=== PATIENT | female | born 1965 ===

== ENCOUNTER 2017-06-29 13:51 | Outpatient (CLI) | payer OTHER | END 2017-06-29 14:28 | disposition home or self-care (01) | LOC: MRI 13:51 | DX: M25.562 Pain in left knee (principal) | CPT/HCPCS: 73721 ==

== ENCOUNTER 2018-07-20 11:16 | Outpatient (CLI) | payer OTHER | END 2018-07-20 11:18 | disposition home or self-care (01) | LOC: SONOGRAMA 11:16 | DX: R10.84 Generalized abdominal pain (principal); R10.11 Right upper quadrant pain ==

== ENCOUNTER 2018-09-22 13:21 | Outpatient (CLI) | payer OTHER | END 2018-09-22 13:36 | disposition home or self-care (01) | LOC: NUCLEAR 13:21 | DX: M81.0 Age-related osteoporosis without current pathological fracture (principal) ==

== ENCOUNTER 2019-12-14 14:11 | Outpatient (CLI) | payer OTHER | END 2019-12-14 15:00 | disposition home or self-care (01) | LOC: LAB 14:11 | PROVIDERS: ATTEND Internal Medicine | DX: R07.89 Other chest pain (principal); N39.0 Urinary tract infection, site not specified; I10 Essential (primary) hypertension; E06.9 Thyroiditis, unspecified ==

== ENCOUNTER → 2020-02-10 08:57 | Outpatient (CLI) | payer OTHER | END | disposition home or self-care (01) | LOC: LAB 08:57 | PROVIDERS: ATTEND Internal Medicine | DX: E06.5 Other chronic thyroiditis (principal); Z20.828 Contact with and (suspected) exposure to other viral communicable diseases; M15.0 Primary generalized (osteo)arthritis; I10 Essential (primary) hypertension; N39.0 Urinary tract infection, site not specified; Z12.11 Encounter for screening for malignant neoplasm of colon; E55.9 Vitamin D deficiency, unspecified; M25.50 Pain in unspecified joint ==

== ENCOUNTER → 2020-02-17 10:16 | Outpatient (CLI) | payer OTHER | END | disposition home or self-care (01) | LOC: LAB 10:16 | PROVIDERS: ATTEND Internal Medicine | DX: E06.0 Acute thyroiditis (principal); N39.0 Urinary tract infection, site not specified; I10 Essential (primary) hypertension; Z12.11 Encounter for screening for malignant neoplasm of colon; M15.0 Primary generalized (osteo)arthritis; B96.89 Other specified bacterial agents as the cause of diseases classified elsewhere; M25.50 Pain in unspecified joint; R76.0 Raised antibody titer ==

== ENCOUNTER 2020-11-15 08:16 | Outpatient (CLI) | payer OTHER | END 2020-11-15 08:19 | disposition home or self-care (01) | LOC: NUCLEAR 08:16 | PROVIDERS: ATTEND Internal Medicine | DX: R07.89 Other chest pain (principal) ==

== ENCOUNTER 2020-11-23 09:42 | Outpatient (CLI) | payer OTHER | END 2020-11-23 09:47 | disposition home or self-care (01) | LOC: LAB 09:42 | PROVIDERS: ATTEND Specialist | DX: E06.3 Autoimmune thyroiditis (principal) ==

== ENCOUNTER 2020-12-31 07:13 | Outpatient (CLI) | payer OTHER | END 2020-12-31 09:15 | disposition home or self-care (01) | LOC: SONOGRAMA 07:13 → MAMO-SONO 07:15 → SONOGRAMA 09:15 | PROVIDERS: ATTEND Specialist | DX: E04.2 Nontoxic multinodular goiter (principal); K76.0 Fatty (change of) liver, not elsewhere classified; E06.3 Autoimmune thyroiditis ==

== ENCOUNTER 2020-12-31 08:31 | Outpatient (CLI) | payer OTHER | END 2020-12-31 08:40 | disposition home or self-care (01) | LOC: NUCLEAR 08:31 | PROVIDERS: ATTEND Internal Medicine | DX: M81.0 Age-related osteoporosis without current pathological fracture (principal) ==

== ENCOUNTER 2021-01-04 10:37 | Outpatient (CLI) | payer OTHER | END 2021-01-04 18:00 | disposition home or self-care (01) | LOC: LAB 10:37 | DX: N39.0 Urinary tract infection, site not specified (principal); I10 Essential (primary) hypertension; D68.8 Other specified coagulation defects; Z03.818 Encounter for observation for suspected exposure to other biological agents ruled out ==

== ENCOUNTER 2021-02-19 10:30 | Outpatient (CLI) | payer OTHER | END 2021-02-19 11:00 | disposition home or self-care (01) | LOC: PPH VACUNA 10:30 | PROVIDERS: ATTEND Emergency Medicine Pediatric Emergency Medicine | DX: Z23 Encounter for immunization (principal) ==

== ENCOUNTER 2021-08-23 08:28 | Outpatient (CLI) | payer OTHER | END 2021-08-23 08:48 | disposition home or self-care (01) | LOC: LAB 08:28 | PROVIDERS: ATTEND Internal Medicine | DX: N39.0 Urinary tract infection, site not specified (principal); I10 Essential (primary) hypertension; E06.9 Thyroiditis, unspecified; E78.9 Disorder of lipoprotein metabolism, unspecified ==

== ENCOUNTER → 2022-04-18 10:40 | Outpatient (CLI) | payer OTHER | END | disposition home or self-care (01) | LOC: LAB 10:40 | PROVIDERS: ATTEND Internal Medicine | DX: I10 Essential (primary) hypertension (principal); E06.9 Thyroiditis, unspecified; N39.0 Urinary tract infection, site not specified ==

== ENCOUNTER 2022-09-21 07:50 | Outpatient (CLI) | payer OTHER | END 2022-09-21 08:02 | disposition home or self-care (01) | LOC: SONOGRAMA 07:50 | PROVIDERS: ATTEND Internal Medicine Endocrinology, Diabetes & Metabolism | DX: E04.2 Nontoxic multinodular goiter (principal) ==

== ENCOUNTER → 2022-09-24 07:22 | Outpatient (CLI) | payer OTHER | END | disposition home or self-care (01) | LOC: NUCLEAR 07:00 | PROVIDERS: ATTEND Internal Medicine Endocrinology, Diabetes & Metabolism | DX: E04.2 Nontoxic multinodular goiter (principal) ==

== ENCOUNTER 2022-10-05 08:50 | Outpatient (CLI) | payer OTHER | END 2022-10-05 08:53 | disposition home or self-care (01) | LOC: SONOGRAMA 08:50 | PROVIDERS: ATTEND Pathology Anatomic Pathology & Clinical Pathology | DX: D34 Benign neoplasm of thyroid gland (principal); E04.9 Nontoxic goiter, unspecified; E06.3 Autoimmune thyroiditis ==

== ENCOUNTER 2022-12-09 13:58 | Outpatient (CLI) | payer OTHER | END 2022-12-09 14:00 | disposition home or self-care (01) | LOC: LAB 13:58 | PROVIDERS: ATTEND Internal Medicine | DX: R10.84 Generalized abdominal pain (principal); N39.0 Urinary tract infection, site not specified; I10 Essential (primary) hypertension ==

== ENCOUNTER 2022-12-10 08:18 | Outpatient (CLI) | payer OTHER | END 2022-12-10 13:00 | disposition home or self-care (01) | LOC: TOM 08:18 | PROVIDERS: ATTEND Internal Medicine | DX: R10.84 Generalized abdominal pain (principal) ==

== ENCOUNTER 2022-12-11 07:19 | Outpatient (CLI) | payer OTHER | END 2022-12-11 07:22 | disposition home or self-care (01) | LOC: SONOGRAMA 07:19 | PROVIDERS: ATTEND Internal Medicine | DX: R10.84 Generalized abdominal pain (principal) ==

== ENCOUNTER 2023-01-12 09:26 | Outpatient (CLI) | payer OTHER | END 2023-01-12 10:46 | disposition home or self-care (01) | LOC: TOM 09:26 | PROVIDERS: ATTEND Internal Medicine | DX: S00.93XA Contusion of unspecified part of head, initial encounter (principal); R51.9 Headache, unspecified ==